=== PATIENT | male | born 1960 | race Caucasian/White ===

== ENCOUNTER 2023-10-15 08:26 | Outpatient (RCR) | payer BC, SELFPAY | END 2023-10-19 13:59 | disposition home or self-care (01) | LOC: RPT 08:26 | PROVIDERS: ATTENDING PHYSICIAN Urology; FAMILY PHYSICIAN Family Medicine | DX: C61 Malignant neoplasm of prostate (principal); M62.89 Other specified disorders of muscle; Z73.6 Limitation of activities due to disability; Z90.79 Acquired absence of other genital organ(s); Z98.890 Other specified postprocedural states | CPT/HCPCS: 97110; 97162; 97535 ==

== ENCOUNTER → 2024-04-08 06:44 | Day surgery (SDC) | payer BC, SELFPAY | LOC: GI 06:44 | PROVIDERS: ATTENDING PHYSICIAN Internal Medicine Gastroenterology | DX: Z12.11 Encounter for screening for malignant neoplasm of colon (principal); K63.5 Polyp of colon; K57.30 Diverticulosis of large intestine without perforation or abscess without bleeding; K64.8 Other hemorrhoids; Z86.010 Personal history of colon polyps | CPT/HCPCS: 45380; 88305 ==

== ENCOUNTER → 2024-08-01 13:47 | Outpatient (REF) | payer BC, SELFPAY | LOC: HWRCS 13:47 | PROVIDERS: ATTENDING PHYSICIAN Internal Medicine Cardiovascular Disease; FAMILY PHYSICIAN Internal Medicine Critical Care Medicine | DX: R06.09 Other forms of dyspnea (principal) | CPT/HCPCS: 93306 ==

== ENCOUNTER → 2024-08-03 08:27 | Outpatient (REF) | payer BC, SELFPAY | LOC: DHCBC/DCA 08:27 | PROVIDERS: ATTENDING PHYSICIAN Internal Medicine Cardiovascular Disease; FAMILY PHYSICIAN Internal Medicine Critical Care Medicine | DX: R06.09 Other forms of dyspnea (principal) | CPT/HCPCS: 78452; 93017; A9500 ==

== ENCOUNTER → 2025-04-24 08:57 | Outpatient (REF) | payer BC, SELFPAY | LOC: HWRAD 08:57 | PROVIDERS: ATTENDING PHYSICIAN Family Medicine | DX: Z87.891 Personal history of nicotine dependence (principal); R06.09 Other forms of dyspnea | CPT/HCPCS: 71046; 71271 ==

== ENCOUNTER → 2025-07-04 12:19 | Outpatient (REF) | payer BC, SELFPAY | LOC: RSP 12:19 | PROVIDERS: ATTENDING PHYSICIAN Internal Medicine Pulmonary Disease; FAMILY PHYSICIAN Family Medicine | DX: R06.02 Shortness of breath (principal) | CPT/HCPCS: 88738; 94010; 94727; 94729 ==

== ENCOUNTER → 2025-07-17 12:37 | Outpatient (REF) | payer BC, SELFPAY | LOC: HWRAD 12:37 | PROVIDERS: ATTENDING PHYSICIAN Internal Medicine Pulmonary Disease; FAMILY PHYSICIAN Family Medicine | DX: R91.1 Solitary pulmonary nodule (principal) | CPT/HCPCS: 71250 ==